=== PATIENT | female | born 1995 | race Caucasian/White ===

== ENCOUNTER 2019-08-21 13:45 | Observation (INO) | payer OTHER ==
[2019-08-21] MEDS ORDERED: ACETAMINOPHEN 325 MG TABLET PO ONE (14:00)
[2019-08-21 14:04] VITALS: BP 99/62
[2019-08-21] MEDS ORDERED: PREN-217 PO (14:04)
[2019-08-21 15:58] LABS: INFLUENZA TYPE A NEGATIVE FOR TYPE A (NEGATIVE); INFLUENZA TYPE B POSITIVE FOR TYPE B (NEGATIVE)
== END 2019-08-21 16:25 | disposition home or self-care (01) ==
LOC: 4S 13:45 → INTOOBSV 13:45
PROVIDERS: ADMIT Obstetrics & Gynecology; ATTEND Obstetrics & Gynecology
DX: O99.89 Other specified diseases and conditions complicating pregnancy, childbirth and the puerperium (principal); M79.10 Myalgia, unspecified site; Z3A.27 27 weeks gestation of pregnancy
CPT/HCPCS: 87804; G0378